=== PATIENT | female | born 1960 | race African-American/Black ===

== ENCOUNTER 2020-08-21 16:50 | Inpatient (IN) | payer MEDICAID ==
[~2020-08-21] VITALS: Ht 167.6 cm; Wt 74.8 kg
[2020-08-21] MEDS ORDERED: ONDANSETRON HCL 4MG/2ML INJ IV ONE (17:15)
[2020-08-21] MEDS ORDERED: SODIUM CHLORIDE 0.9% 1,000 ML IV ONE (17:15)
[2020-08-21 17:40] LABS: HEMATOCRIT. 36.4 % (36.0-48.0); HEMOGLOBIN. 12.5 g/dL (12.0-16.0); MEAN CORPUSCULAR HEMOGLOBIN 29.8 pg (28.0-32.0); MEAN PLATELET VOLUME 9.7 fl (7.4-10.4); PLATELET 82 x1000/uL (130-400); RED BLOOD CELL COUNT 4.18 mill/uL (4.2-5.4); RED CELL DISTRIBUTION WIDTH 13.9 % (11.6-14.6)
[2020-08-21 17:42] LABS: CHLORIDE 106 mEq/L (98-107)
[2020-08-21 17:44] LABS: ETHANOL BLOOD < 10 mg/dL
[2020-08-21] MEDS ORDERED: SODIUM CHLORIDE 0.9% 1,500 ML IV ONE (18:00)
[2020-08-21] MEDS ORDERED: VANCOMYCIN 1 G PREMIX 200 ML IV SCH (18:00)
[2020-08-21] MEDS ORDERED: PIPERACILLIN/TAZ 3.375G PREMIX 50 ML IV ONE (18:00)
[2020-08-21 18:16] LABS: PLATELET ESTIMATE DECREASED
[2020-08-21] MEDS ORDERED: ASPIRIN 325MG EC TABLET PO ONE (19:15)
[2020-08-21 19:26] LABS: CLARITY URINE TURBID (CLEAR); COLOR URINE DARK YELLOW (YELLOW); KETONES URINE TRACE (NEGATIVE); LEUKOCYTE ESTERASE URINE 3+ (NEGATIVE); NITRITE URINE NEGATIVE (NEGATIVE); OCCULT BLOOD URINE 3+ (NEGATIVE); PROTEIN URINE 3+ (NEGATIVE); SPECIFIC GRAVITY URINE 1.017 (1.005-1.030)
[2020-08-21] MEDS ORDERED: ACETAMINOPHEN 325MG TABLET PO ONE (19:30)
[2020-08-21 19:39] LABS: *AMPHETAMINES SCREEN URINE NEGATIVE (NEGATIVE); *BARBITURATES SCREEN URINE NEGATIVE (NEGATIVE); *BENZODIAZEPINES SCREEN URINE NEGATIVE (NEGATIVE)
[2020-08-21 19:40] LABS: *COCAINE SCREEN URINE NEGATIVE (NEGATIVE); CANNABINOID URINE SCREEN NEGATIVE (NEGATIVE); METHADONE URINE SCREEN NEGATIVE (NEGATIVE); OPIATES URINE SCREEN NEGATIVE (NEGATIVE); PHENCYCLIDINE URINE SCREEN NEGATIVE (NEGATIVE)
[2020-08-21] MEDS ORDERED: NOREPINEPHRINE 8MG/250ML PMX 250 ML IV ONE (19:45)
[2020-08-21 22:42] VITALS: BP 106/53
[2020-08-21 23:15] VITALS: BP 88/50
[2020-08-21] MEDS ORDERED: DEXTROSE 50% WATER 50ML SYRINGE IV PRN (23:15)
[2020-08-21] MEDS ORDERED: ACETAMINOPHEN 325MG TABLET PO PRN (23:15)
[2020-08-21] MEDS ORDERED: ONDANSETRON HCL 4MG/2ML INJ IV PRN (23:15)
[2020-08-21 23:30] VITALS: BP 89/54
[2020-08-21] MEDS ORDERED: CLONIDINE 0.1MG TABLET PO PRN (23:30)
[2020-08-21] MEDS ORDERED: NOREPINEPHRINE 8MG/250ML PMX 250 ML IV PRN (23:30)
[2020-08-21] MEDS: LACTATED RINGERS 1,000 ML IV SCH (23:35)
[2020-08-21 23:45] VITALS: BP 78/56
[2020-08-21 23:49] VITALS: BP 88/45
[2020-08-21 23:55] VITALS: BP 104/62
[2020-08-22] VITALS (94 sets, daily range): BP systolic 73–159; BP diastolic 29–106
[2020-08-22] MEDS ORDERED: PIPERACILLIN/TAZOBACTAM 3.375 G in DEXT 5% WATER 100 ML IV SCH (01:00)
[2020-08-22] MEDS: PIPERACILLIN/TAZOBACTAM 2.25 G in DEXTROSE 5% WATER 50 ML IV SCH ×4 (01:55→23:01)
[2020-08-22] MEDS: NOREPINEPHRINE 8 MG in DEXTROSE 5% WATER 250 ML IV PRN ×2 (05:41→15:05)
[2020-08-22 05:46] LABS: HEMATOCRIT. 33.3 % (36.0-48.0); HEMOGLOBIN. 11.3 g/dL (12.0-16.0); MEAN CORPUSCULAR HEMOGLOBIN 29.5 pg (28.0-32.0); MEAN CORPUSCULAR VOLUME 86.7 fL (81.0-99.0); MEAN PLATELET VOLUME 10.5 fl (7.4-10.4); PLATELET 65 x1000/uL (130-400); RED BLOOD CELL COUNT 3.84 mill/uL (4.2-5.4); RED CELL DISTRIBUTION WIDTH 14.3 % (11.6-14.6)
[2020-08-22] MEDS ORDERED: HEPARIN 5000 UNITS/ML VIAL SUBCUT SCH (06:00)
[2020-08-22] MEDS: BLOOD SUGAR DIAGNOSTIC STRIP TEST SCH ×4 (06:14→21:33)
[2020-08-22] MEDS: INSULIN LISPRO 100 UNITS/ML SUBCUT SCH ×4 (06:22→21:00)
[2020-08-22] MEDS ORDERED: ASPIRIN 81MG TABLET PO SCH (09:00)
[2020-08-22] MEDS: LACTATED RINGERS 1,000 ML IV SCH ×2 (11:09→23:04)
[2020-08-22 12:06] LABS: PLATELET ESTIMATE DECREASED
[2020-08-23] VITALS (72 sets, daily range): BP systolic 74–159; BP diastolic 41–80
[2020-08-23 01:53] LABS: CLARITY URINE CLEAR (CLEAR); COLOR URINE YELLOW (YELLOW); KETONES URINE NEGATIVE (NEGATIVE); LEUKOCYTE ESTERASE URINE 1+ (NEGATIVE); NITRITE URINE NEGATIVE (NEGATIVE); OCCULT BLOOD URINE 2+ (NEGATIVE); PROTEIN URINE 1+ (NEGATIVE); SPECIFIC GRAVITY URINE 1.013 (1.005-1.030); UROBILINOGEN URINE 0.2 E.U./dL (0.2-1.0)
[2020-08-23] MEDS: BLOOD SUGAR DIAGNOSTIC STRIP TEST SCH ×4 (06:06→20:36)
[2020-08-23] MEDS: INSULIN LISPRO 100 UNITS/ML SUBCUT SCH ×4 (06:06→20:36)
[2020-08-23] MEDS: PIPERACILLIN/TAZOBACTAM 2.25 G in DEXTROSE 5% WATER 50 ML IV SCH (06:06)
[2020-08-23] MEDS: CEFTRIAXONE 2 G PREMIX 50 ML IV SCH (14:38)
[2020-08-23 15:34] LABS: BASOPHILS % 0.2 % (0.0-2.0); EOSINOPHILS % 0.4 % (0.0-5.0); HEMATOCRIT. 33.5 % (36.0-48.0); HEMOGLOBIN. 11.5 g/dL (12.0-16.0); LYMPHOCYTES % 13.1 % (20.0-50.0); MEAN CORPUSCULAR HEMOGLOBIN 29.6 pg (28.0-32.0); MEAN CORPUSCULAR VOLUME 86.2 fL (81.0-99.0); MEAN PLATELET VOLUME 9.5 fl (7.4-10.4); MONOCYTES % 8.4 % (2.0-8.0); NEUTROPHILS % 77.9 % (40.0-76.0); PLATELET 76 x1000/uL (130-400); RED BLOOD CELL COUNT 3.89 mill/uL (4.2-5.4); RED CELL DISTRIBUTION WIDTH 13.8 % (11.6-14.6)
[2020-08-23 15:45] LABS: CHLORIDE 117 mEq/L (98-107)
[2020-08-23 15:53] LABS: PHOSPHORUS 2.1 mg/dL (2.5-4.9)
[2020-08-23] MEDS: LACTATED RINGERS 1,000 ML IV SCH ×2 (17:08→20:40)
[2020-08-24] VITALS (21 sets, daily range): BP systolic 97–135; BP diastolic 63–80
[2020-08-24 05:49] LABS: HEMATOCRIT. 32.5 % (36.0-48.0); HEMOGLOBIN. 11.5 g/dL (12.0-16.0); MEAN CORPUSCULAR HEMOGLOBIN 30.6 pg (28.0-32.0); MEAN CORPUSCULAR VOLUME 86.4 fL (81.0-99.0); MEAN PLATELET VOLUME 9.9 fl (7.4-10.4); PLATELET 77 x1000/uL (130-400); RED BLOOD CELL COUNT 3.76 mill/uL (4.2-5.4); RED CELL DISTRIBUTION WIDTH 13.7 % (11.6-14.6)
[2020-08-24 05:52] LABS: CHLORIDE 117 mEq/L (98-107)
[2020-08-24 06:00] LABS: PHOSPHORUS 1.8 mg/dL (2.5-4.9)
[2020-08-24] MEDS: INSULIN LISPRO 100 UNITS/ML SUBCUT SCH ×5 (06:10→21:00)
[2020-08-24] MEDS: BLOOD SUGAR DIAGNOSTIC STRIP TEST SCH ×4 (06:10→21:01)
[2020-08-24] MEDS: LACTATED RINGERS 1,000 ML IV SCH ×2 (06:10→19:00)
[2020-08-24 07:30] LABS: PLATELET ESTIMATE DECREASED
[2020-08-24 08:10] LABS: *CREATININE RANDOM URINE 56.4 mg/dL (Not Estab.); MICROALBUMIN RANDOM URINE 55.7 ug/mL (Not Estab.)
[2020-08-24] MEDS ORDERED: LEVO750T46 MT (09:22)
[2020-08-24] MEDS ORDERED: *PATIENT'S OWN MEDICATION STORAGE XX SCH (13:00)
[2020-08-24] MEDS: CEFTRIAXONE 2 G PREMIX 50 ML IV SCH (13:48)
[2020-08-24] MEDS: POTASSIUM PHOS,M-BASIC-D-BASIC 20 MMOL in DEXT 5% WATER 243.3333 ML IV ONE ×2 (14:30→17:47)
[2020-08-25] VITALS (8 sets, daily range): BP systolic 95–132; BP diastolic 57–92
[2020-08-25] MEDS: LACTATED RINGERS 1,000 ML IV SCH (05:46)
[2020-08-25] MEDS: INSULIN LISPRO 100 UNITS/ML SUBCUT SCH ×4 (06:29→20:33)
[2020-08-25] MEDS: BLOOD SUGAR DIAGNOSTIC STRIP TEST SCH ×4 (06:29→20:33)
[2020-08-25 06:49] LABS: HEMATOCRIT. 30.5 % (36.0-48.0); HEMOGLOBIN. 10.6 g/dL (12.0-16.0); MEAN CORPUSCULAR VOLUME 86.4 fL (81.0-99.0); MEAN PLATELET VOLUME 9.5 fl (7.4-10.4); PLATELET 109 x1000/uL (130-400); RED BLOOD CELL COUNT 3.54 mill/uL (4.2-5.4)
[2020-08-25 07:13] LABS: PHOSPHORUS 3.6 mg/dL (2.5-4.9)
[2020-08-25 12:06] LABS: PLATELET ESTIMATE MARKEDLY DECREASED
[2020-08-25] MEDS: CEFTRIAXONE 2 G in DEXTROSE 5% WATER 50 ML IV SCH (12:19)
[2020-08-25] MEDS: POTASSIUM CHLORIDE INJ 30 MEQ in SODIUM CHLORIDE 0.45% 1,000 ML IV SCH (13:25)
[2020-08-25] MEDS: MIDODRINE HCL 5MG TABLET PO SCH ×2 (15:31→17:37)
[2020-08-26 00:25] VITALS: BP 94/74
[2020-08-26 04:30] VITALS: BP 97/67
[2020-08-26] MEDS: BLOOD SUGAR DIAGNOSTIC STRIP TEST SCH ×3 (06:25→17:19)
[2020-08-26] MEDS: INSULIN LISPRO 100 UNITS/ML SUBCUT SCH ×3 (06:25→17:18)
[2020-08-26 07:54] VITALS: BP 102/66
[2020-08-26] MEDS: MIDODRINE HCL 5MG TABLET PO SCH ×3 (07:56→17:18)
[2020-08-26] MEDS: POTASSIUM CHLORIDE INJ 30 MEQ in SODIUM CHLORIDE 0.45% 1,000 ML IV SCH (09:18)
[2020-08-26] MEDS: CEFTRIAXONE 2 G in DEXTROSE 5% WATER 50 ML IV SCH (12:44)
[2020-08-26 17:00] VITALS: BP 115/76
== END 2020-08-26 17:45 | disposition home or self-care (01) | DRG 720 ==
LOC: ER 16:50 → MICUSO 19:37 → ENRESERV 20:57 → MICUSO 08-22 16:26 → 6WST 08-24 11:30
PROVIDERS: ADMIT Internal Medicine; ATTEND Internal Medicine
DX: A41.51 Sepsis due to Escherichia coli [E. coli] (principal); I21.4 Non-ST elevation (NSTEMI) myocardial infarction; R65.21 Severe sepsis with septic shock; I50.23 Acute on chronic systolic (congestive) heart failure; N17.9 Acute kidney failure, unspecified; E87.2 Acidosis; D69.6 Thrombocytopenia, unspecified; E11.22 Type 2 diabetes mellitus with diabetic chronic kidney disease; N28.1 Cyst of kidney, acquired; N39.0 Urinary tract infection, site not specified; K80.20 Calculus of gallbladder without cholecystitis without obstruction; D64.9 Anemia, unspecified; F17.210 Nicotine dependence, cigarettes, uncomplicated; N18.9 Chronic kidney disease, unspecified; R74.01 Elevation of levels of liver transaminase levels; I08.1 Rheumatic disorders of both mitral and tricuspid valves; Z79.899 Other long term (current) drug therapy
CPT/HCPCS: 36415; 71045; 76700; 76770; 80048; 80053; 80061; 80305; 80320; 81003; 82043; 82570; 82962; 83036; 83605; 83735; 83935; 84100; 84300; 84443; 84484; 85025; 87077; 87186; 93005; 93306; 93970; 97116; 97162; 99291; C1893; J0696; J1644; J2405; J2543; J3370; J3480; J3490; J7030; J7040; J7060; J7120; G0480

== ENCOUNTER 2022-02-22 17:04 | Emergency (ER) | payer MEDICAID ==
[~2022-02-22] VITALS: Ht 167.6 cm; Wt 93.0 kg
[~2022-02-22 17:04] MED LIST: LEVO750T68 MT
[2022-02-22] MEDS ORDERED: SODIUM CHLORIDE 0.9% 1000ML BAG (SEPSIS BOLUS) IV ONE (17:45)
[2022-02-22] MEDS ORDERED: ACETAMINOPHEN 325MG TABLET PO STA (17:45)
[2022-02-22 18:39] LABS: HEMOGLOBIN. 11.8 g/dL (12.0-16.0); MEAN CORPUSCULAR HEMOGLOBIN 29.9 pg (28.0-32.0); MEAN CORPUSCULAR VOLUME 88.7 fL (81.0-99.0); MEAN PLATELET VOLUME 9.4 fl (7.4-10.4); PLATELET 163 x1000/uL (130-400); RED BLOOD CELL COUNT 3.94 mill/uL (4.2-5.4); RED CELL DISTRIBUTION WIDTH 13.6 % (11.6-14.6)
[2022-02-22 18:58] LABS: CHLORIDE 106 mEq/L (98-107)
[2022-02-22 19:16] LABS: PLATELET ESTIMATE NORMAL
[2022-02-22] MEDS: ACETAMINOPHEN 325MG TABLET PO NR ×2 (20:09→21:02)
[2022-02-22] MEDS ORDERED: ONDA4TAB50 MT (21:20)
[2022-02-22 23:14] VITALS: BP 96/54
== END 2022-02-22 23:20 | disposition home or self-care (01) ==
LOC: ER 17:04 → CANBEDREQ 02-24 00:55
DX: B34.9 Viral infection, unspecified (principal); R50.9 Fever, unspecified; E11.9 Type 2 diabetes mellitus without complications; I10 Essential (primary) hypertension; Z20.822 Contact with and (suspected) exposure to COVID-19
CPT/HCPCS: 36415; 71045; 80053; 83605; 84484; 85025; 87040; 87077; 87186; 87426; 87804; 93005; 96360; 99285; C9803; J7030; Z7610

== ENCOUNTER 2024-02-23 15:33 | Emergency (ER) | payer MEDICAID ==
[~2024-02-23] VITALS: Ht 170.2 cm; Wt 90.7 kg
[~2024-02-23 15:33] MED LIST changes: +ONDA4TAB50 MT
[2024-02-23 16:07] VITALS: BP 127/50; PULSE 91; RESP 16; TEMP 98; O2SAT 97
[2024-02-23 18:18] LABS: POTASSIUM 4.2 mEq/L (3.5-5.1)
[2024-02-23 18:19] LABS: CALCIUM 10.5 mg/dL (8.7-10.4)
[2024-02-23 18:22] LABS: BASOPHILS % 0.4 % (0.0-2.0); HEMATOCRIT. 37.3 % (36.0-48.0); HEMOGLOBIN. 12.3 g/dL (12.0-16.0); LYMPHOCYTES % 43.7 % (20.0-50.0); MEAN CORPUSCULAR HEMOGLOBIN 30.3 pg (28.0-32.0); MEAN CORPUSCULAR VOLUME 91.7 fL (81.0-99.0); MEAN PLATELET VOLUME 9.5 fl (7.4-10.4); NEUTROPHILS % 43.9 % (40.0-76.0); PLATELET 216 x1000/uL (130-400); RED BLOOD CELL COUNT 4.07 mill/uL (4.2-5.4); RED CELL DISTRIBUTION WIDTH 13.3 % (11.6-14.6); WHITE BLOOD COUNT 4.8 x1000/uL (4.5-11.0)
[2024-02-23 18:25] LABS: CREATININE 1.2 mg/dL (0.6-1.0)
[2024-02-23 18:52] LABS: INR 0.9; PROTHROMBIN TIME 10.3 sec (9.6-11.0)
== END 2024-02-23 19:55 | disposition home or self-care (01) ==
LOC: ER 15:33
DX: N93.9 Abnormal uterine and vaginal bleeding, unspecified (principal); E11.9 Type 2 diabetes mellitus without complications; Z85.41 Personal history of malignant neoplasm of cervix uteri
CPT/HCPCS: 36415; 80048; 85025; 86850; 86900; 99283